=== PATIENT | female | born 1990 | race Caucasian/White ===

== ENCOUNTER 2016-10-11 15:42 | Inpatient (IN) | payer MEDICAID ==
[~2016-10-11] VITALS: Ht 162.6 cm; Wt 106.3 kg
[~2016-10-11 15:42] MED LIST: CALC-176 PO; IRON1TAB78 PO; PRENAT PO
[2016-10-11 16:02] VITALS: BP 111/69; PULSE 98; RESP 18; Ht 162.6 cm; Wt 106.3 kg
[2016-10-11] MEDS ORDERED: LACTATED RINGER'S 1,000 ML IV SCH (18:01)
--- NOTE | 2016-10-11 18:04 | HP ---
Date/Time of Note Date/Time of Note DATE: 10/11/16 TIME: 17:59 OB - History Hx of Present Free Text/Dictation admitted in early labor at 39 weeks Chief Complaint: labor pains Last Menstrual Period: Jan 06, 2016 Estimated Due Date: Oct 18, 2016 : 2 Para: 1 Care: Good Care Ultrasounds: Normal mid trimester US Obstetrical Complications: None Medical Complications: None Past Family/Social History * Past Medical, Surgical, Family and Obstetric Histories reviewed from chart. Blood Type: O+ Rubella: immune RPR/VDRL: Negative GBS Status: Positive HBsAG: Negative OB Admission Exam Vital Signs Vital Signs Vital Signs Date Time Temp Pulse Resp B/P Pulse Ox O2 Delivery O2 Flow Rate FiO2 10/11/16 16:02 98.0 98 18 111/69 Room Air Physical Exam HEENT: WNL Heart: Rhythm Normal Lungs: Clear, Equal Abdomen: WNL Extremities: Normal Reflexes: Normal Cervical Dilatation: 3cm Effacement: 50% Station: -2 Membranes: Intact Heart Rate: 130's Accelerations: Accelerations Present Decelerations: No Decelerations Varibility: Marked Contractions on Admission: < 5 Minutes Apart Date/Time Contractions Began: 10/11/2016 Frequency of Contractions: q 5 Duration: >45 seconds Intensity: Moderate OB Assessment/Plan Other Assessment: term gestation labor pains Other plan: proceed with labor JOAO BRISCOE MD Oct 11, 2016 18:04
[2016-10-11] MEDS ORDERED: LIDOCAINE 1% (MPF) 30 ML INJ INJ PRN (18:30)
[2016-10-11] MEDS ORDERED: LACTATED RINGER'S 1,000 ML IV PRN (18:30)
[2016-10-11] MEDS ORDERED: OXYTOCIN 30 UNITS/LR 500 ML IV PRN (18:30)
[2016-10-11] MEDS ORDERED: AMPICILLIN 2 GM/NS (PMX) 100 ML IV ONE (18:30)
[2016-10-11] MEDS ORDERED: CARBOPROST 250 MCG INJ IM PRN (18:30)
[2016-10-11] MEDS ORDERED: METHYLERGONOVINE 0.2 MG INJ IM PRN (18:30)
[2016-10-11] MEDS ORDERED: IBUPROFEN 600 MG TAB PO PRN (18:30)
[2016-10-11] MEDS ORDERED: BUTORPHANOL 2 MG INJ IV PRN (18:30)
[2016-10-11] MEDS ORDERED: MISOPROSTOL 200 MCG TAB PR PRN (18:30)
[2016-10-11] MEDS ORDERED: OXYTOCIN 30 UNITS/LR 500 ML IV SCH ×2 (18:30)
--- NOTE | 2016-10-11 18:37 | TRIAGE ---
OB Triage Datetime Report Generated by CPN: 10/11/2016 18:37 Datetime: 10/11/2016 17:49 Vaginal Exam Dilatation (cms): 3.0 Effacement (%): 70 Station: -2 Exam By: A NATHENUKASYAN Datetime: 10/11/2016 16:12 Assessment Type: Admission Assessment Maternal Assessment Level of Consciousness: Fully Conscious DTR's/Clonus: DTRs 2+; No Clonus Headache: Denies Blurred Vision: No Respiratory Effort: Unlabored; Regular Rhythm; Equal Expansion Breath Sounds, Left: Clear and Equal Breath Sounds, Right: Clear and Equal Nausea/Vomiting: Denies RUQ Epigastric Pain: Denies Lower Extremities Edema: None Degree: None Upper Extremities Edema: None Degree: None Facial Edema: None Fall Risk Assessment History of Falling: (0) No Secondary Diagnosis: (0) No Ambulatory Aid: (0) Bedrest/Nurse Assist IV Therapy: (0) No Gait: (0) Normal/Bedrest/Immobile Mental Status: (0) Oriented to Own Ability Fall Score: 0 Fall Risk Score Definition: No Risk: No action required Datetime: 10/11/2016 16:08 Labor Evaluation Frequency: 2-5 Monitor Mode: External Duration (sec)2399: 50-70 Quality: Moderate Pattern: Normal: <= 5 Contractions in 10 Minutes Resting Tone [place]: Relaxed Heart Rate FHR Baseline Rate: 140 Monitor Mode: External US Variability: Moderate 6-25 bpm Accelerations: 15X15 Decelerations: None Category: Category I Datetime: 10/11/2016 16:05 Time of Arrival: 10/11/2016 15:40 EGA: 39.0 Arrived By: Ambulatory Arrived From: Home Chief Complaint: UC'S Movement: Present Contractions: Regular Time Contractions Began: 10/11/2016 08:00 Contractions: Q5MIN Rupture of Membranes: Denies Vaginal Discharge: Denies Recent Sexual Intercouse: Denies Abdominal Trauma: Not Applicable Time Provider Notified: 10/11/2016 16:05 Provider Notified: DR WOOD Initial Plan: NSST, VE Datetime: 10/11/2016 16:02 Vaginal Exam Dilatation (cms): 2.5 Effacement (%): 70 Station: -2 Exam By: Chely NYE
[2016-10-11 19:20] LABS: ADD SCAN DIFF NO
[2016-10-11 19:31] LABS: BASOPHILS % 0.1 % (0.0-2.0); EOSINOPHILS % 0.4 % (0.0-7.0); HEMATOCRIT 37.5 % (37.0-47.0); HEMOGLOBIN 12.8 g/dl (12.0-16.0); LYMPHOCYTES % 19.4 % (15.0-51.0); MEAN CORPUSCULAR HEMOGLOBIN 31.8 pg (29.0-33.0); MEAN CORPUSCULAR HGB CONC 34.1 g/dl (32.0-37.0); MEAN CORPUSCULAR VOLUME 93.1 fl (82.0-101.0); MEAN PLATELET VOLUME 9.7 fl (7.4-10.4); MONOCYTE # 0.6 10^3/ul (0.3-0.9); MONOCYTES % 5.9 % (0.0-11.0); NEUTROPHIL # 7.6 10^3/ul (1.6-7.5); NEUTROPHILS % 73.4 % (39.0-77.0); PLATELET COUNT 355 10^3/UL (140-415); RED BLOOD COUNT 4.03 10^6/ul (4.20-5.40); RED CELL DISTRIBUTION WIDTH 13.1 % (11.5-14.5); WHITE BLOOD COUNT 10.4 10^3/ul (4.8-10.8)
[2016-10-11 19:32] LABS: PARTIAL THROMBOPLASTIN TIME 27.7 Sec (25.0-35.0)
[2016-10-11 20:18] LABS: INR 0.97; PROTIME 12.8 Sec (12.2-14.2)
[2016-10-11] MEDS ORDERED: AMPICILLIN 1 GM/NS (PMX) 50 ML IV SCH (22:30)
[2016-10-13] MEDS ORDERED: IBUP-1542 PO (17:06)
== END 2016-10-12 01:01 | disposition home or self-care (01) | DRG 775 ==
LOC: OBT 15:42 → L-D 15:43 → OBT 17:58
PROVIDERS: ADMIT Obstetrics & Gynecology; ATTEND Obstetrics & Gynecology
PROC: 10E0XZZ Delivery of Products of Conception, External Approach (ICD-10-PCS; principal; 2016-10-11)
DX: O80 Encounter for full-term uncomplicated delivery (principal); Z37.0 Single live birth; Z3A.39 39 weeks gestation of pregnancy
CPT/HCPCS: 62319; 85025; 85610; 85730; 86592; 86900; 86901; G0463; J0290; J7120

== ENCOUNTER 2016-10-12 14:13 | Inpatient (IN) | payer MEDICAID ==
[~2016-10-12] VITALS: Ht 162.6 cm; Wt 105.8 kg
[2016-10-12 14:43] VITALS: Ht 162.6 cm; Wt 105.8 kg
[2016-10-12] MEDS ORDERED: LACTATED RINGER'S 1,000 ML IV SCH (14:44)
[2016-10-12] MEDS ORDERED: CARBOPROST 250 MCG INJ IM PRN ×2 (15:00→21:00)
[2016-10-12] MEDS ORDERED: OXYTOCIN 30 UNITS/LR 500 ML IV PRN ×2 (15:00→21:00)
[2016-10-12] MEDS ORDERED: LIDOCAINE 1% (MPF) 30 ML INJ INJ PRN (15:00)
[2016-10-12] MEDS ORDERED: LACTATED RINGER'S 1,000 ML IV PRN (15:00)
[2016-10-12] MEDS ORDERED: METHYLERGONOVINE 0.2 MG INJ IM PRN ×2 (15:00→21:00)
[2016-10-12] MEDS ORDERED: AMPICILLIN 2 GM/NS (PMX) 100 ML IV ONE (15:00)
[2016-10-12] MEDS ORDERED: MISOPROSTOL 200 MCG TAB PR PRN ×2 (15:00→21:00)
[2016-10-12] MEDS ORDERED: BUTORPHANOL 2 MG INJ IV PRN ×2 (15:00)
[2016-10-12 15:11] LABS: ADD SCAN DIFF NO
[2016-10-12 15:14] LABS: BASOPHILS % 0.3 % (0.0-2.0); EOSINOPHILS % 0.2 % (0.0-7.0); HEMATOCRIT 35.5 % (37.0-47.0); HEMOGLOBIN 12.3 g/dl (12.0-16.0); LYMPHOCYTES # 1.8 10^3/ul (0.8-2.9); LYMPHOCYTES % 17.6 % (15.0-51.0); MEAN CORPUSCULAR HEMOGLOBIN 32.1 pg (29.0-33.0); MEAN CORPUSCULAR HGB CONC 34.6 g/dl (32.0-37.0); MEAN CORPUSCULAR VOLUME 92.7 fl (82.0-101.0); MEAN PLATELET VOLUME 9.7 fl (7.4-10.4); MONOCYTE # 0.9 10^3/ul (0.3-0.9); MONOCYTES % 8.4 % (0.0-11.0); NEUTROPHIL # 7.4 10^3/ul (1.6-7.5); NEUTROPHILS % 72.8 % (39.0-77.0); PLATELET COUNT 344 10^3/UL (140-415); RED BLOOD COUNT 3.83 10^6/ul (4.20-5.40); RED CELL DISTRIBUTION WIDTH 13.2 % (11.5-14.5); WHITE BLOOD COUNT 10.2 10^3/ul (4.8-10.8)
[2016-10-12 15:23] LABS: INR 0.97; PROTIME 12.9 Sec (12.2-14.2)
[2016-10-12 15:24] LABS: PARTIAL THROMBOPLASTIN TIME 28.6 Sec (25.0-35.0)
[2016-10-12] MEDS ORDERED: OXYTOCIN 30 UNITS/LR 500 ML IVPB ONE (16:00)
[2016-10-12] MEDS ORDERED: MINERAL OIL LIGHT 10 ML VIAL TOP ONE (16:00)
[2016-10-12] MEDS ORDERED: OXYTOCIN 30 UNITS/LR 500 ML IV SCH ×2 (16:00→17:00)
[2016-10-12] MEDS ORDERED: FENTAnyl 2MCG/ML-ROPIV 0.2% 100 ML ONE (16:10)
[2016-10-12] MEDS ORDERED: DIPHENHYDRAMINE 50 MG INJ IV PRN (16:30)
[2016-10-12] MEDS ORDERED: FENTAnyl 2MCG/ML-ROPIV 0.2% 100 ML BAG EPI SCH (16:30)
[2016-10-12] MEDS ORDERED: NALOXONE (0.4 MG/ML) INJ IV PRN (16:30)
[2016-10-12] MEDS ORDERED: ONDANSETRON 4 MG INJ IV PRN (16:30)
--- NOTE | 2016-10-12 17:52 | QN ---
Documentation Comment [facility] OB H&P Patient Name: Zayra Forrest Unit Number: [id number] Date of : 1990 Patient Status: Discharged Inpatient Attending Doctor: Joao Ruelas MD Date/Time of Note Date/Time of Note Date/Time of Note DATE: 10/11/16 TIME: 17:59 OB - History OB - History Hx of Present Free Text/Dictation admitted in early labor at 39 weeks Chief Complaint: labor pains Last Menstrual Period: Jan 06, 2016 Estimated Due Date: Oct 18, 2016 : 2 Para: 1 Care: Good Care Ultrasounds: Normal mid trimester US Obstetrical Complications: None Medical Complications: None Past Family/Social History * Past Medical, Surgical, Family and Obstetric Histories reviewed from chart. Blood Type: O+ Rubella: immune RPR/VDRL: Negative GBS Status: Positive HBsAG: Negative OB Admission Exam OB Admission Exam Vital Signs Vital Signs Vital Signs Date Time Temp Pulse Resp B/P Pulse Ox O2 Delivery O2 Flow Rate FiO2 10/11/16 16:02 98.0 98 18 111/69 Room Air Physical Exam HEENT: WNL Heart: Rhythm Normal Lungs: Clear, Equal Abdomen: WNL Extremities: Normal Reflexes: Normal Cervical Dilatation: 3cm Effacement: 50% Station: -2 Membranes: Intact Heart Rate: 130's Accelerations: Accelerations Present Decelerations: No Decelerations Varibility: Marked Contractions on Admission: < 5 Minutes Apart Date/Time Contractions Began: 10/11/2016 Frequency of Contractions: q 5 Duration: >45 seconds Intensity: Moderate OB Assessment/Plan OB Assessment/Plan Other Assessment: term gestation labor pains Other plan: proceed with labor Copies To: Copies To: JOAO RUELAS MD Oct 11, 2016 18:04 JOAO RUELAS MD Oct 12, 2016 17:51
--- NOTE | 2016-10-12 18:23 | LDN ---
Date/Time of Note Date/Time of Note DATE: 10/12/16 TIME: 18:21 Delivery Summary of a viable over intact perineum Placenta Delivered: Spontaneously, Intact & Complete Meconium: none Perineum intact?: Yes Anesthesia type: Epidural Estimated blood loss: 300 Sponge & Needle done & correct: Yes All needle counts correct: Yes Any foreign bodies felt in the: No Problems: Delivery Information Sex Infant Sex: male Apgars 1 Minute: 9 5 Minute: 9 Suctioning Nose & mouth suctioned at jennifer: Yes Delee suction performed: No Umbilical Cord Umbilical cord with: 3 Vessels Cord presentations: nuchal cord Nuchal cord present X: 1 Cord Blood was obtained: Yes Mother & Baby Disposition Disposition Mom & Baby to Maternity; Good: Yes (mother and baby were recovered in good condition ) Mom transferred to: Other (maternity ) Baby to NICU: No JOAO BRISCOE MD Oct 12, 2016 18:23
[2016-10-12] MEDS ORDERED: AMPICILLIN 1 GM/NS (PMX) 50 ML IV SCH (19:00)
[2016-10-12 20:30] VITALS: BP 114/70; PULSE 94; RESP 18
[2016-10-12] MEDS ORDERED: DIBUCAINE 1% 30 GM OINT PR PRN (21:00)
[2016-10-12] MEDS ORDERED: BENZOCAINE 20% 56 ML SPRAY TOP PRN (21:00)
[2016-10-12] MEDS ORDERED: WITCH HAZEL/GLYCERIN PAD PR PRN (21:00)
[2016-10-12] MEDS ORDERED: ACETAMINOPHEN/CODEINE #3 TAB PO PRN ×2 (21:00)
[2016-10-12] MEDS ORDERED: LANOLIN 7 GM TUBE TOP PRN (21:00)
[2016-10-12] MEDS ORDERED: ZOLPIDEM 5 MG TAB PO PRN (21:00)
[2016-10-12] MEDS: MAGNESIUM HYDROXIDE 30ML CUP PO SCH (21:39)
[2016-10-12] MEDS: SENNA/DOCUSATE NA (8.6MG/50MG) TAB PO SCH (21:39)
[2016-10-12] MEDS: LACTATED RINGER'S 1,000 ML IV* SCH (22:46)
[2016-10-12 23:30] VITALS: BP 103/52; PULSE 90; RESP 18
[2016-10-12] MEDS: IBUPROFEN 600 MG TAB PO SCH (23:38)
[2016-10-12] MEDS: CEPHALEXIN 500 MG CAP PO SCH (23:38)
[2016-10-13 04:15] VITALS: BP 100/62; PULSE 79; RESP 18
[2016-10-13] MEDS: LACTATED RINGER'S 1,000 ML IV* SCH ×3 (04:35→20:35)
[2016-10-13] MEDS: CEPHALEXIN 500 MG CAP PO SCH ×3 (05:49→17:35)
[2016-10-13] MEDS: IBUPROFEN 600 MG TAB PO SCH ×3 (05:49→17:35)
[2016-10-13 07:26] LABS: ADD SCAN DIFF NO
[2016-10-13 07:30] LABS: BASOPHILS % 0.3 % (0.0-2.0); EOSINOPHILS # 0.1 10^3/ul (0.0-0.5); EOSINOPHILS % 1.2 % (0.0-7.0); HEMATOCRIT 31.7 % (37.0-47.0); HEMOGLOBIN 10.5 g/dl (12.0-16.0); LYMPHOCYTES # 2.5 10^3/ul (0.8-2.9); MEAN CORPUSCULAR HEMOGLOBIN 31.5 pg (29.0-33.0); MEAN CORPUSCULAR HGB CONC 33.1 g/dl (32.0-37.0); MEAN CORPUSCULAR VOLUME 95.2 fl (82.0-101.0); MEAN PLATELET VOLUME 9.9 fl (7.4-10.4); MONOCYTE # 1.1 10^3/ul (0.3-0.9); MONOCYTES % 10.4 % (0.0-11.0); NEUTROPHIL # 6.6 10^3/ul (1.6-7.5); NEUTROPHILS % 63.2 % (39.0-77.0); PLATELET COUNT 285 10^3/UL (140-415); RED BLOOD COUNT 3.33 10^6/ul (4.20-5.40); RED CELL DISTRIBUTION WIDTH 13.5 % (11.5-14.5); WHITE BLOOD COUNT 10.4 10^3/ul (4.8-10.8)
[2016-10-13 08:00] VITALS: BP 83/57; PULSE 88; RESP 18
[2016-10-13] MEDS: MAGNESIUM HYDROXIDE 30ML CUP PO SCH ×2 (09:33→21:00)
[2016-10-13] MEDS: SENNA/DOCUSATE NA (8.6MG/50MG) TAB PO SCH ×2 (09:34→21:00)
[2016-10-13 16:00] VITALS: BP 98/62; PULSE 86; RESP 18
--- NOTE | 2016-10-13 17:04 | DS ---
Date/Time of Note Date/Time of Note home next day DATE: 10/13/16 TIME: 17:03 Obstetrical Discharge Record Final Diagnosis Final Diagnosis: Term delivered Vaginal Delivery Obstetrical Delivery: Spontaneous Complications Augmentation: Yes Condition on Discharge Physical Assessment Last Vitals: see nurses notes Voiding: Yes Bowel Movement: Yes Breast: Soft, non-tender, Filling Fundus: Firm Abdomen and Incision: soft bs + Episiotomy: NA Calf Tenderness: No Patient Condition: Good JOAO BRISCOE MD Oct 13, 2016 17:04
[2016-10-13] MEDS ORDERED: IBUP-1542 PO (17:06)
--- NOTE | 2016-10-13 17:06 | PD.PPDC ---
ART APPRAISER Discharge Instruction Provider Information Physician Information 26 y/o female had vaginal delivery at term Diagnosis Final Diagnosis: S/P vaginal delivery Condition Patient Condition: Good Diet Diet: Resume Regular Diet Activity/Restrictions Activity: Normal Activity May Shower Restrictions: Nothing in the Vagina Return to Work or School: Nov 25, 2016 Follow-up Follow-up with Physician: 4, Week/Weeks (in clinic) Return to clinic for OB Instructions: Breast Tenderness Depression JOAO BRISCOE MD Oct 13, 2016 17:05
[2016-10-13 19:45] VITALS: BP 107/59; PULSE 96; RESP 17
[2016-10-14 03:45] VITALS: BP 86/49; PULSE 73; RESP 18
[2016-10-14] MEDS: LACTATED RINGER'S 1,000 ML IV* SCH ×2 (04:35→12:35)
[2016-10-14] MEDS: CEPHALEXIN 500 MG CAP PO SCH ×4 (05:29→17:29)
[2016-10-14] MEDS: IBUPROFEN 600 MG TAB PO SCH ×4 (05:30→17:29)
[2016-10-14 07:30] VITALS: BP 85/50; PULSE 69; RESP 19
[2016-10-14] MEDS ORDERED: DIPHTH/TET/ACEL PERTUSS (ADULT) 0.5 ML VIAL IM* ONE (09:00)
[2016-10-14] MEDS ORDERED: VARICELLA VACCINE LIVE/PF 1,350 UNIT/0.5 ML ML SC* ONE (09:00)
[2016-10-14] MEDS: MAGNESIUM HYDROXIDE 30ML CUP PO SCH (09:00)
[2016-10-14] MEDS ORDERED: MEASLES,MUMPS,RUBELLA VACCINE INJ SC* ONE (09:00)
[2016-10-14] MEDS: SENNA/DOCUSATE NA (8.6MG/50MG) TAB PO SCH (09:00)
[2016-10-14 15:45] VITALS: BP 113/56; PULSE 82; RESP 18
[2016-10-15] MEDS ORDERED: INFLUENZA VIRUS VACCINE 0.5 ML (DISPENSING) IM* ONE (09:00)
== END 2016-10-14 18:35 | disposition home or self-care (01) | DRG 775 ==
LOC: OBT 14:13 → L-D 14:13 → OBT 14:30 → L-D 14:30 → PP1 20:30
PROVIDERS: ADMIT Obstetrics & Gynecology; ATTEND Obstetrics & Gynecology
PROC: 10E0XZZ Delivery of Products of Conception, External Approach (ICD-10-PCS; principal; 2016-10-12)
DX: O69.81X0 Labor and delivery complicated by cord around neck, without compression, not applicable or unspecified (principal); Z68.41 Body mass index [BMI] 40.0-44.9, adult; O99.214 Obesity complicating childbirth; E66.01 Morbid (severe) obesity due to excess calories; Z3A.28 28 weeks gestation of pregnancy; Z37.0 Single live birth
CPT/HCPCS: 85025; 85610; 85730; 86592; 87340; 90715; 90716; G0463; J0290; J3010; J7120